=== PATIENT | female | born 1980 | race Caucasian/White ===

== ENCOUNTER 2018-07-22 15:47 | Emergency (ER) | payer OTHER ==
[~2018-07-22] VITALS: Wt 79.3 kg
--- NOTE | 2018-07-22 17:49 | ERD ---
ER Documentation Chief Complaint Chief Complaint VAG BLEED TODAY W/ CLOTS UNKNOWN HOW MANY WEEKS HPI 37-year-old female, at approximately EGA of LMP 04/24/18, presents the emergency department, complaining of 1 day with vaginal spotting, associated with cramping pelvic pain. No fever, no chills. ROS All systems reviewed and are negative except as per history of present illness. Medications Home Meds Active Scripts Cephalexin* (Keflex*) 500 Mg Capsule, 500 MG PO TID for 7 Days, CAP Prov:VIJAY NOGUERA MD 07/22/18 Acetaminophen* (Tylenol*) 325 Mg Tablet, 2 TAB PO Q8 PRN for PAIN AND OR ELEVATED TEMP, #20 TAB Prov:VIJAY NOGUERA MD 07/22/18 Allergies Allergies: Coded Allergies: No Known Allergy (Unverified , 07/22/18) PMhx/Soc Medical and Surgical Hx: pt denies Medical Hx, pt denies Surgical Hx History of Surgery: Yes (C SECTION X 4) Anesthesia Reaction: No Hx Alcohol Use: No Hx Substance Use: No Hx Tobacco Use: No Smoking Status: Never smoker FmHx Family History: No diabetes, No coronary disease Physical Exam Vitals Vital Signs Date Temp Pulse Resp B/P (MAP) Pulse Ox O2 O2 Flow FiO2 Time Delivery Rate 07/22/18 98.3 85 20 130/89 100 Room Air 20:44 (103) 07/22/18 98.3 83 18 140/90 99 16:03 (107) Physical Exam Const: No acute distress Head: Atraumatic Eyes: Normal Conjunctiva ENT: Normal External Ears, Nose and Mouth. Neck: Full range of motion. No meningismus. Resp: Clear to auscultation bilaterally Cardio: Regular rate and rhythm, no murmurs Abd: Soft, non tender, non distended. Normal bowel sounds Skin: No petechiae or rashes Back: No midline or flank tenderness Ext: No cyanosis, or edema Neur: Awake and alert Psych: Normal Mood and Affect Results 24 hrs Laboratory Tests Test 07/22/18 17:55 07/22/18 18:00 Urine Color SANDRA Urine Clarity CLOUDY Urine pH 8.0 Urine Specific [place] 1.014 Urine Ketones NEGATIVE mg/dL Urine Nitrite NEGATIVE mg/dL Urine Bilirubin NEGATIVE mg/dL Urine Urobilinogen NEGATIVE mg/dL Urine Leukocyte Esterase NEGATIVE Renan/ul Urine Microscopic RBC > 182 /HPF Urine Microscopic WBC > 182 /HPF Urine Squamous Epithelial Cells FEW /HPF Urine Bacteria FEW /HPF Urine Hemoglobin 3+ mg/dL Urine Glucose NEGATIVE mg/dL Urine Total Protein 2+ mg/dl POC Beta HCG, Qualitative POSITIVE Beta HCG, Quantitative 82977.0 mIU/ml Procedures/MDM Vital signs stable, Physical exam unremarkable. Differential diagnosis include but not limited to: UTI, threatening , incomplete versus complete , ectopic , physiologic implantation bleeding, molar . Physical examination and clinical presentation most likely consistent with threatening . During the ED course the patient remained hemodynamically stable and asymptomatic. Results and clinical impression discussed with patient who agrees with management. The patient is stable to be treated outpatient and will be discharged home with close monitoring and follow-up in 2 days with her primary physician. Bed rest and pelvic rest recommended until further medical evaluation. The patient was instructed regarding the outcomes and the potential complications like severe bleeding and . If the patient presents severe bleeding or pain, she was instructed to return to the hospital immediately. Disclaimer: Inadvertent spelling and grammatical errors are likely due to EHR/dictation software use and do not reflect on the overall quality of patient care. Also, please note that the electronic time recorded on this note does not necessarily reflect the actual time of the patient encounter. Departure Diagnosis: Primary Impression: Vaginal bleeding in patient at less than 20 weeks gestation Additional Impressions: Early stage of Threatened UTI (urinary tract infection) Condition: Stable Patient Instructions: Bleeding During Early Additional Instructions: Thank you very much for allowing us to participate in your care. Your health and safety is our top priority at [facility]. Call your primary care doctor TOMORROW for an appointment during the next 2-4 days and bring all the information and medications prescribed. Have prescriptions filled and follow precisely the directions on the label. If the symptoms get worse and your provider is unavailable, return to the Emergency Department immediately. VIJAY NOGUERA MD Jul 22, 2018 17:49
[2018-07-22] MEDS ORDERED: ACET325T33 PO (20:12)
[2018-07-22] MEDS ORDERED: CEPH-443 PO (20:35)
[2018-07-22 20:44] VITALS: BP 130/89; PULSE 85; RESP 20
== END 2018-07-22 20:50 | disposition home or self-care (01) ==
LOC: FTE 15:47
DX: O20.9 Hemorrhage in early pregnancy, unspecified (principal); O20.0 Threatened abortion; O23.41 Unspecified infection of urinary tract in pregnancy, first trimester; Z3A.01 Less than 8 weeks gestation of pregnancy
CPT/HCPCS: 36415; 76801; 76817; 81001; 81025; 84702; 87086

== ENCOUNTER 2018-07-23 20:25 | Observation (INO) | payer OTHER ==
[~2018-07-23] VITALS: Ht 162.6 cm; Wt 79.3 kg
[~2018-07-23 20:25] MED LIST: ACET325T33 PO; CEPH-443 PO
[2018-07-23] MEDS ORDERED: morphine 4 MG/ML VIAL IV STA ×2 (20:52→23:20)
[2018-07-23] MEDS ORDERED: ONDANSETRON 4 MG INJ IV STA (20:52)
[2018-07-23] MEDS ORDERED: SOD CHLORIDE 0.9% 1,000 ML IV ONE (21:00)
--- NOTE | 2018-07-23 22:33 | ERD ---
ER Documentation Chief Complaint Chief Complaint vaginal bleeding/abd pain, was here yesterday for same. 5 weeks HPI This is a 37-year-old female , currently at approximately 5-1/2 weeks gestational age who is presenting with persistent lower abdominal pain and vaginal bleeding. An ultrasound was completed that demonstrated an intrauterine gestational sac without a yolk sac. There is no evidence of a pole at that time. There is consideration for an early intrauterine , but it was recommended that the patient return today for a repeat hCG. It had been recommended that the patient be seen earlier in the day, but she was unable to come until now. Currently, she endorses waxing and waning moderate lower abdominal cramping and pain with increased vaginal bleeding and now clotting. The patient denies nausea or vomiting. The patient denies changes to bowel movements. The patient has seen blood in her urine, but she believes this to be related to her vaginal bleeding. The patient was seen yesterday and ultimately discharged with concerns of a threatened and a urinary tract infection. She was given a prescription for antibiotics. The patient denies feeling sick recently. The patient denies fever or chills. The patient has had no headache or vision changes. The patient does not endorse neck or back pain. The patient denies lightheadedness or dizziness. The patient has had no chest pain or trouble breathing. The patient has had no focal deficits. The patient has had no weakness or numbness or tingling to the face or extremities. ROS All systems reviewed and are negative except as per history of present illness. Medications Home Meds Active Scripts Cephalexin* (Keflex*) 500 Mg Capsule, 500 MG PO TID for 7 Days, CAP Prov:VIJAY NOGUERA MD 07/22/18 Acetaminophen* (Tylenol*) 325 Mg Tablet, 2 TAB PO Q8 PRN for PAIN AND OR ELEVATED TEMP, #20 TAB Prov:VIJAY NOGUERA MD 07/22/18 Allergies Allergies: Coded Allergies: No Known Allergy (Unverified , 07/22/18) PMhx/Soc History of Surgery: Yes (C SECTION X 4) Anesthesia Reaction: No Hx Neurological Disorder: No Hx Respiratory Disorders: No Hx Cardiac Disorders: No Hx Psychiatric Problems: No Hx Miscellaneous Medical Probl: No Hx Alcohol Use: No Hx Substance Use: No Hx Tobacco Use: No Smoking Status: Never smoker Physical Exam Vitals Vital Signs Date Temp Pulse Resp B/P (MAP) Pulse Ox O2 O2 Flow FiO2 Time Delivery Rate 07/23/18 98.0 69 17 112/87 98 Room Air 23:30 (95) 07/23/18 97.7 92 16 142/93 98 Room Air 20:43 (109) 07/23/18 98.8 116 18 164/94 98 20:29 (117) Physical Exam Const: No apparent distress, well-developed, well-nourished Head: Normocephalic, Atraumatic Eyes: Normal Conjunctiva. Extraocular movements intact. Pupils equal, round and reactive to light ENT: Normal External Ears, Nose and Mouth. Neck: Full range of motion. No meningismus. Resp: Clear to auscultation bilaterally, No wheezes, rales or rhonchi Cardio: Regular rate and rhythm. No murmurs, rubs or gallops Abd: Soft, non distended. Lower abdominal tenderness to palpation. Normal bowel sounds Skin: No petechiae or rashes Back: No midline tenderness. No CVA tenderness Ext: No cyanosis, or edema Neur: Awake and alert, oriented 4. Cranial nerves intact. No facial droop. Normal strength, sensation and coordination. Psych: Normal Mood and Affect Result Diagram: 07/23/18205307/23/182053 Results 24 hrs Laboratory Tests Test 07/23/18 20:54 07/23/18 22:23 White Blood Count 11.3 10^3/ul Red Blood Count 5.26 10^6/ul Hemoglobin 15.3 g/dl Hematocrit 46.1 % Mean Corpuscular Volume 87.6 fl Mean Corpuscular Hemoglobin 29.1 pg Mean Corpuscular Hemoglobin Concent 33.2 g/dl Red Cell Distribution Width 12.6 % Platelet Count 236 10^3/UL Mean Platelet Volume 11.5 fl Immature Granulocytes % 0.200 % Neutrophils % 60.9 % Lymphocytes % 32.1 % Monocytes % 4.9 % Eosinophils % 1.7 % Basophils % 0.2 % Nucleated Red Blood Cells % 0.0 /100WBC Immature Granulocytes # 0.020 10^3/ul Neutrophils # 6.9 10^3/ul Lymphocytes # 3.6 10^3/ul Monocytes # 0.6 10^3/ul Eosinophils # 0.2 10^3/ul Basophils # 0.0 10^3/ul Nucleated Red Blood Cells # 0.0 10^3/ul Sodium Level 140 mmol/L Potassium Level 4.2 mmol/L Chloride Level 105 mmol/L Carbon Dioxide Level 24 mmol/L Anion Gap 11 Blood Urea Nitrogen 17 mg/dl Creatinine 0.64 mg/dl Est Glomerular Filtrat Rate mL/min > 60 mL/min Glucose Level 108 mg/dl Calcium Level 9.2 mg/dl Total Bilirubin 0.0 mg/dl Direct Bilirubin 0.00 mg/dl Indirect Bilirubin 0.0 mg/dl Aspartate Amino Transf (AST/SGOT) 20 IU/L Alanine Aminotransferase (ALT/SGPT) 13 IU/L Alkaline Phosphatase 80 IU/L Total Protein 6.9 g/dl Albumin 4.1 g/dl Globulin 2.80 g/dl Albumin/Globulin Ratio 1.46 Beta HCG, Quantitative 69718.0 mIU/ml Urine Color RED Urine Clarity CLOUDY Urine pH 6.0 Urine Specific [place] 1.015 Urine Ketones NEGATIVE mg/dL Urine Nitrite NEGATIVE mg/dL Urine Bilirubin NEGATIVE mg/dL Urine Urobilinogen NEGATIVE mg/dL Urine Leukocyte Esterase TRACE Renan/ul Urine Microscopic RBC > 182 /HPF Urine Microscopic WBC 134 /HPF Urine Hemoglobin 3+ mg/dL Urine Glucose NEGATIVE mg/dL Urine Total Protein 2+ mg/dl Current Medications Medications Dose Sig/Juan M Start Time Status Last (Trade) Ordered Route PRN Stop Time Admin Dose Reason Admin Morphine 4 mg ONCE STAT 07/23/18 DC 07/23/18 Sulfate IV 20:52 21:09 (morphine) 07/23/18 20:53 Ondansetron 4 mg ONCE STAT 07/23/18 DC 07/23/18 HCl (Zofran IV 20:52 21:11 Inj) 07/23/18 20:53 Sodium 1,000 ml @ Q1H ONCE 07/23/18 DC 07/23/18 Chloride 1,000 mls/hr IV 21:00 21:11 07/23/18 21:59 Morphine 4 mg ONCE STAT 07/23/18 DC 07/23/18 Sulfate IV 23:20 23:34 (morphine) 07/23/18 23:21 1 mg ONCE STAT 07/24/18 DC 07/24/18 Hydromorphone IV 00:41 00:48 HCl 07/24/18 (Dilaudid) 00:42 Procedures/[facility] The patient's presentation warrants further investigation. Previous medical records, if available, were reviewed. LABS The patient's laboratory testing was obtained and reviewed. No emergent treatment was required unless described below. CBC: Mild leukocytosis without shift, likely reactive, low clinical suspicion for systemic infection. No E/o of anemia or thrombocytopenia CMP: No E/o severe acidosis or alkalosis or renal failure or liver disease or diabetic ketoacidosis Urine: E/o acute infection and hematuria [place] [id number] yesterday IMAGING Imaging and Radiology interpretation reviewed. US Pelvis FINDINGS: The uterus is visualized . The endometrial echo is thickened and there is an intrauterine gestational sac. A yolk sac and pole is noted and cr own-rump length, measures 2.4 mm cm . This corresponds to a mean gestational age of 5 weeks and 5 days. No cardiac to be identified this time. The right ovary measures 3.5 x 2.7 x 2.9 cm. Left ovary is not visualized. No significant free fluid. Positive flow is noted within right ovary. IMPRESSION: 1. Intrauterine , corresponding to a mean gestational 5 weeks and 5 days. No identifiable cardiac activity is noted at this time. However this is still an early IUP and would recommend continued follow up ultrasound and serial Beta HCG. 2. The right ovary is unremarkable. The left ovary is not visualized. No gross adnexal masses. No significant free fluid. Electronically viewed and signed by Karan Sanchez Physician on 07/23/2018 23:14 TREATMENT/DISPOSITION The patient presents with symptoms concerning for an incomplete . The patient is endorsing significant abdominal pain and later in her course there were concerns that she was having contractions. Given the severity of her abdominal pain, I do feel that the patient would benefit from obstetric evaluation for possible D&C. The patient's hCG is decreasing and given the amount of bleeding, I do not anticipate this to be a viable . The patient's pain is mostly suprapubic in nature. The patient's urinalysis does reveal both white cells and red cells. This could all be from her vaginal bleed ing. Even so, the patient had already been started on antibiotics yesterday when she first arrived. I did not immediately treat her with antibiotics in the emergency department. The patient does not endorse symptoms concerning for an STI or PID. I have low suspicion for tubo-ovarian abscess. I have low suspicion for ectopic . The patient does have a mild leukocytosis without shift. The patient does not appear systemically ill and I have low suspicion for sepsis. The patient does not endorse any other abdominal pain. The patient does not have any evidence of peritonitis. The patient does not have clinical symptoms concerning for mesenteric ischemia or ischemic colitis. The patient does not have right upper quadrant tenderness, and I have low suspicion for gallstones, cholecystitis or biliary colic. The patient does not have any epigastric pain. I have low suspicion for gastritis, PUD or GERD. The patient does not have left upper quadrant tenderness. I have low suspicion for pancreatitis. The patient does not have any right lower quadrant tenderness, or periumbilical tenderness. I have low suspicion for appendicitis. The patient does not have any left lower quadrant tenderness, and I have low suspicion for diverticulosis or diverticulitis. The patient does not have any flank tenderness. The patient does not have gross hematuria. I have decreased suspicion for nephrolithiasis or renal colic. The patient does not have any palpable pulsatile mass or severe abdominal pain radiating to the back. I have low suspicion for aortic aneurysm, dissection or rupture. At this time, I feel that the patient requires admission for further evaluation and management. The case was discussed with the on-call monitoring coordinator, Dr. Scales, who accepted the patient to her service to a [facility] Floor at 12:42AM on 07/24/2018. The patient will be evaluated for likely D&C. Disclaimer: Inadvertent spelling and grammatical errors are likely due to EHR/dictation software use and do not reflect on the overall quality of patient care. Note that the electronic time recorded on this note does not necessarily reflect the actual time of the patient encounter. Departure Diagnosis: Primary Impression: Incomplete Additional Impressions: First trimester Urinary tract infection Urinary tract infection type: acute cystitis Hematuria presence: with hematuria Qualified Codes: N30.01 - Acute cystitis with hematuria Vaginal bleeding Lower abdominal pain Leukocytosis Leukocytosis type: unspecified Qualified Codes: D72.829 - Elevated white blood cell count, unspecified Condition: Serious NIECY KENDALL MD Jul 23, 2018 22:33
[2018-07-24] VITALS (12 sets, daily range): BP systolic 90–110; BP diastolic 48–60; PULSE 60–86; RESP 15–21; Ht 162.6 cm; Wt 79.3 kg
[2018-07-24] MEDS ORDERED: HYDROmorphONE 0.5 MG/0.5 ML SYG IV STA (00:41)
[2018-07-24] MEDS ORDERED: ACETAMINOPHEN 325 MG TAB PO PRN (01:00)
[2018-07-24] MEDS ORDERED: ONDANSETRON 4 MG INJ IV PRN ×2 (01:00→05:30)
--- NOTE | 2018-07-24 02:00 | NUR ---
ADMISSION NOTES admitted 37 year old female to room 2280. Pt alert and oriented and able to make needs known. Pt admitted with diagnosis of incomplete . Able to ambulate with steady gate. No acute distress at this time. Dr. Adali Scales aware of admission. Unit orientation given. All questions answered. Instructed pt to use call light. Will continue to monitor.
--- NOTE | 2018-07-24 04:04 | CONS ---
Date/Time of Note Date/Time of Note DATE: 07/24/18 TIME: 03:45 Assessment/Plan Assessment/Plan Assessment/Plan A inevitable /incomplete P suction curettage Result Diagram: 07/23/18205307/23/182053 Results 24hrs Laboratory Tests Test 07/23/18 20:54 07/23/18 22:23 White Blood Count 11.3 H Red Blood Count 5.26 Hemoglobin 15.3 Hematocrit 46.1 Mean Corpuscular Volume 87.6 Mean Corpuscular Hemoglobin 29.1 Mean Corpuscular Hemoglobin Concent 33.2 Red Cell Distribution Width 12.6 Platelet Count 236 Mean Platelet Volume 11.5 H Immature Granulocytes % 0.200 Neutrophils % 60.9 Lymphocytes % 32.1 Monocytes % 4.9 Eosinophils % 1.7 Basophils % 0.2 Nucleated Red Blood Cells % 0.0 Immature Granulocytes # 0.020 Neutrophils # 6.9 Lymphocytes # 3.6 H Monocytes # 0.6 Eosinophils # 0.2 Basophils # 0.0 Nucleated Red Blood Cells # 0.0 Sodium Level 140 Potassium Level 4.2 Chloride Level 105 Carbon Dioxide Level 24 Anion Gap 11 Blood Urea Nitrogen 17 Creatinine 0.64 Est Glomerular Filtrat Rate mL/min > 60 Glucose Level 108 Calcium Level 9.2 Total Bilirubin 0.0 L Direct Bilirubin 0.00 Indirect Bilirubin 0.0 Aspartate Amino Transf (AST/SGOT) 20 Alanine Aminotransferase (ALT/SGPT) 13 Alkaline Phosphatase 80 Total Protein 6.9 Albumin 4.1 Globulin 2.80 Albumin/Globulin Ratio 1.46 Beta HCG, Quantitative 13811.0 Urine Color RED Urine Clarity CLOUDY A Urine pH 6.0 Urine Specific [place] 1.015 Urine Ketones NEGATIVE Urine Nitrite NEGATIVE Urine Bilirubin NEGATIVE Urine Urobilinogen NEGATIVE Urine Leukocyte Esterase TRACE A Urine Microscopic RBC > 182 H Urine Microscopic WBC 134 H Urine Hemoglobin 3+ H Urine Glucose NEGATIVE Urine Total Protein 2+ H Consultation Date/Type/Reason Admit Date/Time Jul 24, 2018 at 00:52 Date of Consultation: Jul 24, 2018 Type of Consult obgyn Reason for Consultation pelvic pain vaginal bleeding Hx of Present Illness 37y.o LMP apr 24 presents ER with 2 days of vaginal bleeding with severe pelvic craming pain. She was here on 07.22.18 with same sx but less and sent home after u/s which showed GS with yolk sac 5w6d , Today u/s GS 5w5d no cardiac activity pain level was 10/10 with MS and dilaudid schedule for suction curettage for inevitable . as in HPI Constitutional: no complaints, improved Eyes: no complaints ENT: no complaints Respiratory: no complaints Cardiovascular: no complaints Gastrointestinal: no complaints, pain Genitourinary: no complaints, bleeding Musculoskeletal: no complaints Skin: no complaints Neurologic: no complaints Endocrine: no complaints Lymphatic: no complaints Psychological: no complaints, nl mood/affect Immunologic: no complaints Past Medical History Medications Current Medications Ondansetron HCl (Zofran Inj) 4 mg BRIDGE ORDER PRN IV NAUSEA AND/OR VOMITING; Start 07/24/18 at 01:00; Stop 07/25/18 at 00:59 Acetaminophen (Tylenol Tab) 650 mg ER BRIDGE PRN PO MILD PAIN(1-3)OR ELEVATED TEMP; Start 07/24/18 at 01:00; Stop 07/25/18 at 00:59 Allergies: Coded Allergies: No Known Allergy (Unverified , 07/22/18) Past Surgical History X4 c/s Family History Significant Family History: no pertinent family hx Social History Alcohol Use: none Smoking Status: Current every day smoker Drug Use: none Exam/Review of Systems Vital Signs Vitals Vital Signs Date Temp Pulse Resp B/P (MAP) Pulse Ox O2 O2 Flow FiO2 Time Delivery Rate 07/24/18 97.8 60 21 110/57 98 Room Air 01:52 (74) Exam Constitutional: alert, oriented, well developed Psych: no complaints, nl mood/affect Head: normocephalic, atraumatic Eyes: nl conjunctiva, EOMI, nl lids, nl sclera, PERRL ENMT: nl external ears & nose, nl lips & teeth, nl nasal mucosa & septum Neck: supple, non-tender Respiratory: clear to auscultation, normal air movement Cardiovascular: regular rate and rhythm, nl pulses Gastrointestinal: soft, nl liver, spleen, non-tender Genitourinary - Female: nl adnexae, nl external genitalia, CMT, CVA tenderness, uterus (GS 5w5d), other Musculoskeletal: nl extremities to inspection, nl gait and stance Extremities: normal pulses Neurological: [employer]IST II-XII intact, nl mental status, nl speech, nl strength Skin: nl turgor; No rash or lesions Lymph: nl lymph nodes Medications Medications Current Medications Ondansetron HCl (Zofran Inj) 4 mg BRIDGE ORDER PRN IV NAUSEA AND/OR VOMITING; Start 07/24/18 at 01:00; Stop 07/25/18 at 00:59 Acetaminophen (Tylenol Tab) 650 mg ER BRIDGE PRN PO MILD PAIN(1-3)OR ELEVATED TEMP; Start 07/24/18 at 01:00; Stop 07/25/18 at 00:59 JADA LEBRON MD Jul 24, 2018 03:58
--- NOTE | 2018-07-24 04:52 | NUR ---
PT LEFT UNIT VIA BED IN STABLE CONDITION. NO ACUTE DISTRESS. PT ACCOMPANIED BY (SHERRILL [phone]). CONSENT SIGNED AND IN CHART. COMMUNICATED.
--- NOTE | 2018-07-24 05:18 | PREAC ---
Date/Time of Note Date/Time of Note DATE: 07/24/18 TIME: 05:17 Anesthesia Eval and Record Evaluation Time Pre-Procedure Interview DATE: 07/24/18 TIME: 05:17 Age 37 Sex female NPO: 8 hrs Preoperative diagnosis miscarriage Planned procedure D&C Past Medical History Past Medical History: None Surgery & Anesthesia Issues No known issue Meds Anticoagulation: No Beta Pramod within 24 hr: No Reason Beta Pramod not given: Pt. not on B-Pramod Active Scripts Cephalexin* (Keflex*) 500 Mg Capsule, 500 MG PO TID for 7 Days, CAP Prov:VIJAY NOGUERA MD 07/22/18 Acetaminophen* (Tylenol*) 325 Mg Tablet, 2 TAB PO Q8 PRN for PAIN AND OR ELEVATED TEMP, #20 TAB Prov:VIJAY NOGUERA MD 07/22/18 Current Medications Ondansetron HCl (Zofran Inj) 4 mg BRIDGE ORDER PRN IV NAUSEA AND/OR VOMITING; Start 07/24/18 at 01:00; Stop 07/25/18 at 00:59 Acetaminophen (Tylenol Tab) 650 mg ER BRIDGE PRN PO MILD PAIN(1-3)OR ELEVATED TEMP; Start 07/24/18 at 01:00; Stop 07/25/18 at 00:59 Meds reviewed: Yes Allergies Coded Allergies: No Known Allergy (Unverified , 07/22/18) Allergies Reviewed: Yes Labs/Studies Labs Reviewed: Reviewed by anesthesiologist Result Diagram: 07/23/18205307/23/182053 Laboratory Tests 07/23/18 20:54 Blood Bank Test 07/23/18 20:54 Blood Type O POSITIVE test: Positive Studies: ECG (n/a), CXR (n/a) Pre-procedure Exam Last vitals Vital Signs Date Temp Pulse Resp B/P (MAP) Pulse Ox O2 O2 Flow FiO2 Time Delivery Rate 07/24/18 97.8 60 21 110/57 98 Room Air 01:52 (74) Airway: Adequate mouth opening Mallampati: Mallampati I Teeth: Normal Lung: Normal Heart: Normal ASA Physical Status ASA physical status: 1 Emergency: None Planned Anesthetic General/MAC: LMA Planned Pain Management Parenteral pain med Pre-operative Attestations Prior to commencing anesthesia and surgery, the patient was re-evaluated, there was verification of: *The patient's identity *The results of appropriate recent lab work and preoperative vital signs *The above evaluation not changing prior to induction *Anesthetic plan, risk benefits, alternative and complications discussed with patient/family; questions answered; patient/family understands, accepts and wishes to proceed. CASIE MEJIA MD Jul 24, 2018 05:18
[2018-07-24] MEDS ORDERED: CEFAZOLIN 1 GM INJ ONE (05:22)
[2018-07-24] MEDS ORDERED: PROPOFOL 20 ML ONE (05:22)
[2018-07-24] MEDS ORDERED: MIDAZOLAM 1 MG/ML 2 ML INJ ONE (05:22)
[2018-07-24] MEDS ORDERED: METOCLOPRAMIDE 10 MG INJ ONE (05:23)
[2018-07-24] MEDS ORDERED: ONDANSETRON 4 MG INJ ONE (05:23)
[2018-07-24] MEDS ORDERED: KETOROLAC 30 MG INJ ONE (05:23)
[2018-07-24] MEDS ORDERED: HYDROmorphONE 1 MG/5 ML IV SYRINGE IV PRN ×3 (05:30)
[2018-07-24] MEDS ORDERED: FENTAnyl 50 MCG/ML VIAL ONE (05:30)
[2018-07-24] MEDS ORDERED: DIPHENHYDRAMINE 50 MG INJ IV PRN (05:30)
[2018-07-24] MEDS ORDERED: MEPERIDINE 25 MG INJ IV PRN (05:30)
[2018-07-24] MEDS ORDERED: OXYTOCIN 10 UNIT INJ ONE (05:50)
--- NOTE | 2018-07-24 06:10 | PAC ---
Date/Time of Note Date/Time of Note DATE: 07/24/18 TIME: 06:10 Post-Anesthesia Notes Post-Anesthesia Note Last documented vital signs Vital Signs Date Temp Pulse Resp B/P (MAP) Pulse Ox O2 O2 Flow FiO2 Time Delivery Rate 07/24/18 97.8 60 21 110/57 98 Room Air 01:52 (74) Activity: WNL Respiratory function: WNL Cardiovascular function: WNL Mental status: Baseline Pain reasonably controlled: Yes Hydration appropriate: Yes Nausea/Vomiting absent: No CASIE MEJIA MD Jul 24, 2018 06:10
--- NOTE | 2018-07-24 06:12 | SIPON ---
Date/Time of Note Date/Time of Note DATE: 07/24/18 TIME: 06:10 Operative Report Preoperative Diagnosis incomplete Postoperative Diagnosis same as above see pathologic report Operation/Procedure Performed suction curettage Surgeon see signature line administrative support assistant [facility] Anesthesia: general Estimated blood loss: 10 - 50 ml's Specimen POC Grafts/Implants none Complications none JADA LEBRON MD Jul 24, 2018 06:12
--- NOTE | 2018-07-24 06:13 | PD.PPDC ---
MANAGER PURCHASING Discharge Instruction Diagnosis [id number] Final Diagnosis: Oalzd5w incomplete Condition [id number] Patient Condition: Ropql0v Stable Diet [id number] Diet: Qytyl3x Resume Regular Diet Activity/Restrictions [id number] Activity: Eusjw6g May Shower [id number] Restrictions: Wkkae2h No Sexual Activity Nothing in the Vagina No [place] No Tampons, douche Follow-up Follow-up with Physician: 2, Week/Weeks Return to clinic for [id number] CONVERSION DEVELOPER Instructions: Catte6c Fever greater than 101 Chills Worsening abdominal pain Excessive Vaginal Bleeding More than 2 pads per hour Unable to tolerate diet JADA LEBRON MD Jul 24, 2018 06:13
--- NOTE | 2018-07-24 06:35 | NUR ---
REPORT FROM BOOM OPERATORCHARLOTTE Zarate called for report. Pt won't be transferred until after 7. Will endorse to next shift.
--- NOTE | 2018-07-24 07:11 | NUR ---
pacu notes: transferred pt back to . stable. alert/awake, denies any pain. no active vaginal bleeding noted. notified pt's s/o, tati and made aware of pt going back to .
--- NOTE | 2018-07-24 07:20 | NUR ---
EOSS Pt arrived on unit, introduced to day shift nurse. In no acute distress. Call light within reach. Pt had suction and curettage at 5 am.
--- NOTE | 2018-07-24 07:39 | NUR ---
RECEIVED PT FROM PACU IN STABLE CONDITION. PT IS AWAKE, ALERT, ORIENTED. NO COMPLAINTS OF PAIN, N/V. MADE COMFORTABLE IN ROOM, CALL LIGHT PLACED WITHIN REACH. CLEAR LIQUID TRAY ORDERED. PLAN FOR D/C TODAY.
--- NOTE | 2018-07-24 08:29 | OPR ---
DATE OF OPERATION: 07/24/2018 PREOPERATIVE DIAGNOSIS: Incomplete . POSTOPERATIVE DIAGNOSIS: Incomplete . See pathological report. OPERATION PERFORMED: Suction curettage. ANESTHESIA: General. ANESTHESIOLOGIST: Dr. Torrez. ESTIMATED BLOOD LOSS: Less than 50 mL. PROCEDURE: Under the proper induction of general anesthesia, the patient was placed in dorsal lithot yonathan position. Perineal area and vagina wall was prepped and draped in usual aseptic manner. On insp ection, external genitalia revealed no gross abnormality. On manual examination, the cervix opened a nd there was some tissue on the cervical os and size of uterus approximately 9 weeks of gestation. W eighted speculum introduced. Anterior lip of the cervix was grasped with a single tooth tenaculum. There is a product of conception. It was protruding out through the cervical os. Cervical os was al ready dilated size 10 Hegar dilator without resistance. Size 7 suction curette was introduced and th e entire cavity was suctioned followed by sharp curettage and then re-suctioned until shows the sign of complete emptiness. Instrument removed from the operative field. 10 units of Pitocin given throu gh the IV infusion. No significant bleeding noted. The patient was sent to the recovery room in sta ble condition. Dictated By: NANCI MAE/CELINA Conf#: [id number] DID#: [id number]
--- NOTE | 2018-07-24 09:52 | NUR ---
PT STARTED ON CLEAR LIQUID DIET AND TOLERATING WELL. DENIES PAIN, N/V.
--- NOTE | 2018-07-24 10:19 | NUR ---
DISCHARGE NOTE: ALL INSTRUCTIONS GIVEN TO PT, ALL QUESTIONS ANSWERED. IV REMOVED INTACT, ID BAND REMOVED. PT DISCHARGED HOME WITH AT BEDSIDE WITH ALL BELONGINGS IN STABLE CONDITION.
== END 2018-07-24 10:20 | disposition home or self-care (01) ==
LOC: E/R 20:25 → 2NE 07-24 00:52
PROVIDERS: ADMIT Obstetrics & Gynecology; ATTEND Obstetrics & Gynecology
DX: O03.4 Incomplete spontaneous abortion without complication (principal)
CPT/HCPCS: 36415; 59812; 76801; 76817; 80053; 81001; 84702; 85025; 85610; 85730; 86900; 86901; 87086; 88305; 96374; 96375; 96376; J0690; J1170; J1885; J2250; J2270; J2405; J2590; J2765; J3010; J7030; Z7500; Z7502; Z7512; Z7610; G0378

== ENCOUNTER 2018-09-07 21:39 | Emergency (ER) | payer OTHER ==
[~2018-09-07] VITALS: Ht 162.6 cm; Wt 80.4 kg
[2018-09-07 21:42] VITALS: BP 145/85; PULSE 90; RESP 18; Ht 162.6 cm; Wt 80.4 kg
--- NOTE | 2018-09-08 01:22 | ERD ---
ER Documentation Chief Complaint Chief Complaint c/section incisional site with drainage x 2 days HPI 37-year-old female, presents to the emergency department, for evaluation of surgical incision irritation after having tubal sterilization 1 week ago. She denies fevers or chills. ROS All systems reviewed and are negative except as per history of present illness. Medications Home Meds Active Scripts Ibuprofen* (Motrin*) 400 Mg Tab, 400 MG PO Q8, #15 TAB Prov:VIJAY NOGUERA MD 09/08/18 Sulfamethoxazole/Trimethoprim* (Bactrim Ds* Tablet) 1 Each Tablet, 1 TAB PO BID, #14 TAB Prov:VIJAY NOGUERA MD 09/08/18 Cephalexin* (Keflex*) 500 Mg Capsule, 500 MG PO BID for 7 Days, #14 CAP Prov:VIJAY NOGUERA MD 09/08/18 Cephalexin* (Keflex*) 500 Mg Capsule, 500 MG PO TID for 7 Days, CAP Prov:VIJAY NOGUERA MD 07/22/18 Acetaminophen* (Tylenol*) 325 Mg Tablet, 2 TAB PO Q8 PRN for PAIN AND OR ELEVATED TEMP, #20 TAB Prov:VIJAY NOGUERA MD 07/22/18 Allergies Allergies: Coded Allergies: No Known Allergy (Unverified , 07/22/18) PMhx/Soc History of Surgery: Yes (tubal ligation, c/section x4) Anesthesia Reaction: No Hx Neurological Disorder: No Hx Respiratory Disorders: No Hx Cardiac Disorders: No Hx Psychiatric Problems: No Hx Miscellaneous Medical Probl: No Hx Alcohol Use: No Hx Substance Use: No Hx Tobacco Use: No Smoking Status: Never smoker FmHx Family History: No diabetes, No coronary disease Physical Exam Vitals Vital Signs Date Temp Pulse Resp B/P (MAP) Pulse Ox O2 O2 Flow FiO2 Time Delivery Rate 09/07/18 97.9 90 18 145/85 99 21:42 (105) Physical Exam Const: No acute distress Head: Atraumatic Eyes: Normal Conjunctiva ENT: Normal External Ears, Nose and Mouth. Neck: Full range of motion. No meningismus. Resp: Clear to auscultation bilaterally Cardio: Regular rate and rhythm, no murmurs Abd: Soft, non tender, non distended. Normal bowel sounds Skin: Surgical incision with erythema and tenderness. Back: No midline or flank tenderness Ext: No cyanosis, or edema Neur: Awake and alert Psych: Normal Mood and Affect Procedures/MDM Vital signs stable, differential diagnosis include but not limited to: cellul itis, erysipelas, folliculitis, abscess. Low suspicion for acute systemic infectious process. Physical examination and clinical presentation consistent most likely with superficial infection of the surgical incision. During the ED course the patient remained stable, no new complaints. Results and clinical impression discussed with the patient who agrees with management. The patient is stable to be treated outpatient and will be discharged home with a Rx for antibiotics, some side effects of prescribed med ications (headache, rash, nausea, vomiting, diarrhea, drowsiness, habituation, bleeding, hypertension, interactions with other medications) were reviewed. The patient was instructed to follow up with the primary care provider in the next 48h. If symptoms persist, worsen or new symptoms develop, then patient should return to the ED immediately. Instructions explained and given directly by me to the patient and relatives with acknowledgment and demonstrated understanding. Disclaimer: Inadvertent spelling and grammatical errors are likely due to EHR/dictation software use and do not reflect on the overall quality of patient care. Also, please note that the electronic time recorded on this note does not necessarily reflect the actual time of the patient encounter. Departure Diagnosis: Primary Impression: Superficial skin infection Condition: Stable Additional Instructions: Thank you very much for allowing us to participate in your care. Your health and safety is our top priority at [facility]. Call your primary care doctor TOMORROW for an appointment during the next 2-4 days and bring all the information and medications prescribed. Have prescriptions filled and follow precisely the directions on the label. If the symptoms get worse and your provider is unavailable, return to the Emergency Department immediately. VIJAY NOGUERA MD Sep 08, 2018 01:22
[2018-09-08] MEDS ORDERED: SULF1TAB31 PO (01:45)
[2018-09-08] MEDS ORDERED: IBUP-1561 PO (01:45)
[2018-09-08] MEDS ORDERED: CEPH-443 PO (01:45)
== END 2018-09-08 01:57 | disposition home or self-care (01) ==
LOC: FTE 21:39
DX: O86.01 Infection of obstetric surgical wound, superficial incisional site (principal); B96.89 Other specified bacterial agents as the cause of diseases classified elsewhere
CPT/HCPCS: 99283